=== PATIENT | female | born 1985 | race Caucasian/White ===

== ENCOUNTER 2018-12-13 13:36 | Inpatient (IN) | payer OTHER ==
[2018-12-13 15:05] LABS: BASO % 0.2 % (0-2.0); EOS % 0.3 % (0-4.5); HEMATOCRIT 34.1 % (32.4-45.2); HEMOGLOBIN 11.6 GM/dL (10.7-15.3); LYMPH % 17.4 % (8-40); MCH 31.7 pg (25.7-33.7); MCHC 33.9 g/dl (32.0-36.0); MEAN CELL VOLUME 93.4 fl (80-96); MEAN PLT VOLUME 10.1 fl (7.5-11.1); MONO % 7.8 % (3.8-10.2); NEUT % 74.3 % (42.8-82.8); PLATELET COUNT 203 K/MM3 (134-434); RBC 3.65 M/mm3 (3.60-5.2); RDW 13.5 % (11.6-15.6); WHITE BLOOD COUNT 7.9 K/mm3 (4.0-10.0)
[2018-12-13 15:14] VITALS: BMI 30.7
[2018-12-13 15:26] LABS: INR 0.96 (0.83-1.09); PROTHROMBIN TIME (PATIENT) 11.3 SEC (9.7-13.0)
[2018-12-13 15:29] LABS: ACTIVATED PTT 27.1 SECONDS (25.2-36.5)
[2018-12-13 15:33] LABS: CALCIUM 8.6 mg/dL (8.5-10.1); CREATININE 0.4 mg/dL (0.55-1.3); POTASSIUM 3.6 mmol/L (3.5-5.1)
[2018-12-13] MEDS ORDERED: ELECTROLYTE-148 SOLN 1,000 ML IV ONE (15:45)
[2018-12-13] MEDS ORDERED: CITRIC ACID/SODIUM CITRATE 30 ML UNIT-DOSE CUP PO ONE ×3 (15:45→19:26)
[2018-12-13] MEDS ORDERED: ELECTROLYTE-148 SOLN 1,000 ML IV SCH ×2 (15:45→19:30)
[2018-12-13] MEDS ORDERED: TUBERCULIN PPD 5 TU/0.1ML SYRINGE (IN PATIENT USE ONLY) ID ONE (16:30)
[2018-12-13] MEDS ORDERED: ELECTROLYTE-148 SOLN 500 ML IV ONE (19:20)
--- NOTE | 2018-12-13 19:32 | HP ---
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: Alzheimer's, CVA, Dementia, Migraine, Multiple Sclerosis, Peripheral Neuropathy, Parkinson's, Seizure, Syncope, TIA, Vertigo, Other Cardiovascular: No: AFIB, Aneurysm, Aortic Insufficiency, Aortic Stenosis, CAD, CHF, Deep Vein Thrombosis, HTN, Hyperlipdemia, NC, Mitral Insufficiency, Mitral Stenosis, Murmur, Pulmonary Hypertension, Other Pulmonary: No: Asthma, Bronchitis, Cancer, COPD, O2 Dependent, Pneumonia, Previously Intubated, Pulmonary Embolus, Pulmonary Fibrosis, Sleep Apnea, Other Gastrointestinal: No: Ascites, Cancer, Constipation, Crohn's Disease, Diverticulitis, Diverticulosis, Esophageal Varices, Gastritis, GERD, GI Bleed, Hemorrhoids, Hiatal Hernia, Inflamatory Bowel Disease, Irritable Bowel Disease, Pancreatitis, Peptic Ulcer Disease, Ulcerative Colitis, Other Hepatobiliary: No: Cirrhosis, Cholelithiasis, Cholecystitis, Choledocholithiasis , Hepatitis A, Hepatitis B, Hepatitis C, Other Renal/: No: Renal Failure, Renal Inusuff, BPH, Cancer, Hematuria, Hemodialysis , Neurogenic Bladder, Renal Calculi, UTI, Other Reproductive: No: Ectopic , Endometriosis, Fibroids, PID, Polycystic Ovary Syndrome, Postmenopausal, Other ...: 1 ...Para: 0 ...Term: 0 ...: 0 ...Spon : 0 ...Induced : 0 ...Multiple Gestation: 0 ...LMP: 03/12/18 ...EDC by Sono: 12/10/18 Heme/Onc: No: Anemia, B12 Deficiency, Bleeding Disorder, Cancer, Current Chemotherapy, Current Radiation Therapy, Hemochromatosis, Hypercoaguable State, Myeloproliferative Synd, Sickle Cell Disease, Sickle Cell Trait, Thrombocytopenia, Other Infectious Disease: No: AIDS, C-Diff, Herpes Zoster, HIV, MRSA, STD's, Tuberculosis, VREF, Other Psych: No: Addictions, Anxiety, Bipolar, Depression, Panic, Psychosis, Schizophrenia, Other Musculoskeletal: No: Bursitis, Chronic low back pain, Hemiparesis, Hemiplegia, Osteoarthritis, Paraplegia, Other Rheumatology: No: Fibromyalgia, Gout, Lupus, Rheumatoid Arthritis, Sarcoidosis, Vasculitis, Other ENT: No: Allergic Rhinitis, Sinusitis, Other Endocrine: No: Cole's Disease, [place]'s Disease, Diabetes Insipidus, Diabetes Mellitus, Hyperparathyroidism, Hyperthyroidism, Hypothyroidism, Osteopenia, SIADH, Other Dermatology: No: Basal Cell, Cellulitis, Eczema, Melanoma, Psoriasis, Squamous Cell, Other - Past Surgical History Past Surgical History: No: None, AAA Repair, AICD, Amputation, Appendectomy, Arthrosocopy, AV Fistula/Graft, Bariatric Surgery, Breast Biopsy, Bypass, CABG, Carotid Endarterectomy, Cataract Removal, Cholecystectomy, Colectomy, Colonoscopy, Colostomy, Craniotomy, , Cystectomy, Hernia Repair, Hysterectomy, Ileal Conduit, Ileosotomy, Joint Replacement, Kidney Transplant, Laminectomy, Liver Transplant, Mastectomy, Nephrectomy, Oopherectomy, Orchiectomy, Permanent Pacemaker, Prostatectomy, Splenectomy, Stent, Thoracotomy , TURP, Tonsillectomy, Tubal Ligation, Upper Endoscopy, Valve Replacement, Vasectomy, Vein Stripping/Ligation Hx Myomectomy: No Hx Transabdominal Cerclage: No - Advance Directives Advance Directives: No: Living Will, Health Care Proxy, DNR, Organ Donor, Tissue Donor, MOLST - Smoking History Smoking history: Never smoked Have you smoked in the past 12 months: No - Alcohol/Substance Use Hx Alcohol Use: No History of Substance Use: reports: None. denies: Cocaine, Heroin, Marijuana, Prescription, Tranquilizers - Social History Usual Living Arrangement: Yes: With Spouse ADL: Independent History of Recent Travel: No Home Medications - Allergies Allergies/Adverse Reactions: Allergies Allergy/AdvReac Type Severity Reaction Status Date / Time No Known Allergies Allergy Verified 12/13/18 14:47 - Home Medications Home Medications: Ambulatory Orders Vits96/Iron Fum/Folic [ Tablet] 1 each PO DAILY 12/13/18 Family Disease History - Family Disease History Family History: Denies Review of Systems - Review of Systems Constitutional: denies: No Symptoms, Chills, Diaphoresis, Fever, Lethargy, Loss of Appetite, Malaise, Night Sweats, Unintentional Wgt. Loss, Weakness, Other Eyes: denies: No Symptoms, Blind Spots, Blurred Vision, Double Vision, Eye Pain , Floaters, Photophobia, Recent Change in Vision, Other HENT: denies: No Symptoms, Difficult Swallowing, Ear Discharge, Ear Pain, Epistaxis, Gingival Bleeding, Hearing Loss, Mouth Swelling, Nasal Congestion, Ocular Prosthesis, Throat Pain, Toothache, Ringing in Ears, Other Neck: denies: No Symptoms, Decreased ROM, Lumps, Pain on Movement, Stiffness, Swollen Glands, Tenderness, Other Cardiovascular: denies: No Symptoms, Chest Pain, Edema, Palpitations, Shortness of Breath, Other Respiratory: denies: No Symptoms, Cough, Exercise Intolerance, Hemoptysis, Orthopnea, PND, Snoring, SOB, SOB on Exertion, Wheezing, Other Gastrointestinal: denies: No Symptoms, Abdominal Pain, Bloating, Constipation, Diarrhea, Dysphagia, Indigestion, Melena, Nausea, Rectal Bleeding, Vomiting, Vomiting Blood, Other Genitourinary: denies: No Symptoms, Burning, Discharge, Dysuria, Flank Pain, Frequency, Hematuria, Incontinence, Lesions, Menses, Pain, Testicular Mass, Testicular Pain, Testicular Swelling, Urgency, Vaginal Bleeding, Other Breasts: denies: No Symptoms Reported, See HPI, Breast Implants, Discharge from Nipple, Lumps, Pain, Skin Changes, Other Musculoskeletal: denies: No Symptoms, Back Pain, Crepitus, Decreased ROM, Extremity Pain, Joint Pain, Joint Swelling, Muscle Pain, Muscle Cramps, Muscle Weakness, Other Integumentary: denies: No Symptoms, Blister, Bruising, Change in Color, Eczema, Erythema, Incision, Lesions, Lump, Pallor, Pruritis, Rash, Wound, Other Neurological: denies: No Symptoms, Change in LOC, Change in Speech, Confusion, Dizziness, Headache, Incoordination, Numbness, Parasthesia, Pre-Existing Deficit , Seizure, Syncope, Tremors, Unsteady Gait, Weakness, Other Endocrine: denies: No Symptoms, Excessive Sweating, Flushing, Increased Hunger, Increased Thirst, Intolerance to Cold, Intolerance to Heat, Unexplained Weight Gain, Unexplained Weight Loss, Other Hematology/Lymphatic: denies: No Symptoms, Easily Bruised, Excessive Bleeding, Swollen Glands, Other Psychiatric: denies: No Symptoms, Altered Sleep Pattern, Anxiety, Depression, Hallucinations, Panic, Paranoia, Suicidal, Other Pain Intensity: 5 Physical Exam - Maternity Vital Signs: Vital Signs Temperature 97.9 F 12/13/18 17:51 Pulse Rate 82 05/29/19 17:51 Respiratory Rate 18 12/13/18 17:51 Blood Pressure 126/58 L 12/13/18 17:51 O2 Sat by Pulse Oximetry (%) Constitutional: Yes: Well Nourished, No Distress, Calm Eyes: Yes: WNL, Conjunctiva Clear, EOM Intact HENT: Yes: WNL, Atraumatic, Normocephalic Neck: Yes: WNL, Supple, Trachea Midline Cardiovascular: Yes: WNL, Regular Rate and Rhythm Lungs: Clear to auscultation, Normal air movement, Other Breast(s): Yes: WNL - Abdominal Exam/OB Fundal Height: 42 Number of Fetuses: Single Presentation: Oblique Contractions: Yes Regularity: Irregular Intensity: Mild/Mod Monitor Mode: External Heart Rate (range): 135 Heart Rate Location: [facility] Category: I Accelerations: Uniform Decelerations: None - Vaginal Exam/OB Vaginal Bleediing: No Speculum Exam: No Dilatation (cm): 1 c m Amniotic Membrane Status: Intact Presentation: Transverse/Shoulder Station: -3 - Physical Exam Musculoskeletal: Yes: WNL. No: Back Pain, Joint Stiffness, Joint Swelling, Muscle Pain, Muscle Weakness, Other Extremities: No: WNL, Amputation, Calf Tenderness, Cold, Cool, Cyanosis, Deformity, Delayed Capillary Refill, Erythema, External Rotation, Internal Rotation, Pallor, Shortened, Other Edema: Yes Edema: LUE: 2+, RUE: 2+, LLE: 2+, RLE: 2+ Integumentary: No: WNL, Body Piercing, Bruising, Erythema, Incision, Jaundice, Laceration, Petechiae, Pressure Ulcer, Rash, Skin Tear, Tattoos, Tenting, Onychomycosis, Venous Stasis Changes, Other Deep Tendon Reflex Grade: Normal +2 ...Motor Strength: WNL, LUE, LLE, RUE, RLE Psychiatric: Yes: WNL, Alert, Oriented - Labs Lab Results: CBC, BMP 12/13/18 14:30 12/13/18 14:30 Hemorrhage Risk Assessment - Risk Factors Risk Score: 0 Risk Level: Low Risk Assessment/Plan for c s as oblique lie, oligo, post date
[2018-12-13] MEDS ORDERED: PHENYLEPHRINE HCL 10 MG/1 ML SINGLE DOSE VIAL ONE (19:47)
[2018-12-13] MEDS ORDERED: morphine SULFATE/Preservative Free 0.5 MG/ML (1cc Syringe) ONE (19:47)
[2018-12-13] MEDS ORDERED: ceFAZolin SODIUM 1 GM VIAL ONE ×2 (20:02)
[2018-12-13] MEDS ORDERED: OXYTOCIN 20 UNITS in 0.9% NS 20 UNIT/1,000 ML INFUS.BAG IV ONE ×2 (20:08→21:12)
[2018-12-13] MEDS ORDERED: METHYLERGONOVINE MALEATE 0.2 MG/1 ML AMP IM PRN (21:24)
[2018-12-13] MEDS ORDERED: oxyCODONE HCL 5 MG TABLET PO PRN ×2 (21:24)
[2018-12-13] MEDS ORDERED: IBUPROFEN 600 MG TABLET (FP) PO PRN (21:24)
[2018-12-13] MEDS ORDERED: SENNOSIDES/DOCUSATE COMBO (SENNA PLUS) TABLET (UD) PO PRN (21:24)
[2018-12-13] MEDS ORDERED: OXYTOCIN 20 UNITS in 0.9% NS 20 UNIT/1,000 ML INFUS.BAG IV SCH (21:30)
--- NOTE | 2018-12-13 21:43 | OP ---
Operative Note - Note: Operative Date: 12/13/18 Pre-Operative Diagnosis: oligo, oblique lie, post date, pt requests Operation: primary lt c s Findings: macrosomia, same Implants: none Post-Operative Diagnosis: Other (mac) Surgeon: Stuart Connell Conference Planning Manager: Augustine Lang Anesthesiologist/PROFESSOR OF ARCHITECTURE: Fede Friend Anesthesia: Spinal Specimens Removed: placenta Estimated Blood Loss (mls): 700 Operative Report Dictated: Yes
[2018-12-14] MEDS: IBUPROFEN 800 MG/8 ML IJ IVPB PRN ×2 (06:44→17:11)
[2018-12-14 08:15] LABS: BASO % 0.2 % (0-2.0); EOS % 0.1 % (0-4.5); HEMOGLOBIN 11.3 GM/dL (10.7-15.3); LYMPH % 11.8 % (8-40); MCH 32.1 pg (25.7-33.7); MCHC 34.2 g/dl (32.0-36.0); MEAN CELL VOLUME 93.7 fl (80-96); MONO % 7.7 % (3.8-10.2); NEUT % 80.2 % (42.8-82.8); PLATELET COUNT 195 K/MM3 (134-434); RBC 3.52 M/mm3 (3.60-5.2); RDW 13.2 % (11.6-15.6); WHITE BLOOD COUNT 10.9 K/mm3 (4.0-10.0)
[2018-12-14] MEDS: ENOXAPARIN NA (PORCINE) 40 MG/0.4 ML DISP.SYRIN SQ SCH (09:38)
--- NOTE | 2018-12-14 10:26 | PN ---
Progress Note, Physician Chief Complaint: POD1 s/p csection with spinal and duramorph - Current Medication List Current Medications: Active Medications Acetaminophen (Tylenol -) 650 mg PO Q4H PRN PRN Reason: PAIN LEVEL 1-5 Bisacodyl (Dulcolax Suppository -) 10 mg RC PRN PRN PRN Reason: CONSTIPATION Enoxaparin Sodium (Lovenox -) 40 mg SQ DAILY [facility] Last Admin: 12/14/18 09:38 Dose: 40 mg Oxytocin/Sodium Chloride (Normal Saline+20 Units Oxytocin -) 20 unit in 1,000 mls @ 125 mls/hr IV ASDIR [facility] Last Admin: 12/13/18 21:15 Dose: 125 mls/hr Ibuprofen (Motrin -) 600 mg PO Q4H PRN PRN Reason: PAIN LEVEL 1-5 Ibuprofen (Caldolor Injection -) 800 mg IVPB Q8H PRN PRN Reason: PAIN LEVEL 7 - 10 Last Admin: 12/14/18 06:44 Dose: 800 mg Methylergonovine Maleate (Methergine Injection -) 0.2 mg IM Q4H PRN PRN Reason: Excessive Bleeding (L&D) Oxycodone HCl (Roxicodone -) 5 mg PO Q4H PRN PRN Reason: PAIN LEVEL 4 - 6 Oxycodone HCl (Roxicodone -) 10 mg PO Q4H PRN PRN Reason: PAIN LEVEL 7 - 10 Senna/Docusate Sodium (Pericolace -) 2 tablet PO HS PRN PRN Reason: CONSTIPATION Simethicone (Mylicon -) 80 mg PO Q4H PRN PRN Reason: GAS - Objective Vital Signs: Vital Signs Temperature 98.9 F 12/14/18 06:00 Pulse Rate 79 12/14/18 06:00 Respiratory Rate 18 12/14/18 07:00 Blood Pressure 117/69 12/14/18 06:00 O2 Sat by Pulse Oximetry (%) 100 12/13/18 22:15 Labs: CBC, BMP 12/14/18 07:00 12/13/18 14:30 INR, PTT INR 0.96 (0.83-1.09) 12/13/18 14:30 Assessment/Plan Pt doing well. pain is under good control. No SANTIAGO, backache, no other anesthetic issues/complications.
--- NOTE | 2018-12-14 14:16 | PN ---
Post Progress Note - Subjective Subjective: pt is doing well, walking Post Day: 1 Type of Delivery: Primary C/S Vital Signs: Vital Signs Temperature 99.1 F 12/14/18 10:00 Pulse Rate 77 12/14/18 10:00 Respiratory Rate 18 12/14/18 13:00 Blood Pressure 122/58 L 12/14/18 10:00 O2 Sat by Pulse Oximetry (%) 100 12/13/18 22:15 Breast Exam: Yes: Soft Uterus: Yes: Fundus Firm, Fundus below umbilicus, Non-tender Incision: Yes: Dressing dry and intact, Sutures intact Abdomen/GI: Yes: Abdomen soft, Passing flatus, Tolerating PO Lochia: Yes: Rubra Lochia, amount: Small Extremities: Yes: Calves non-tender Perineum: Yes: Intact Activity: Ambulating - Labs Labs: CBC WBC 10.9 K/mm3 (4.0-10.0) H 12/14/18 07:00 RBC 3.52 M/mm3 (3.60-5.2) L 12/14/18 07:00 Hgb 11.3 GM/dL (10.7-15.3) 12/14/18 07:00 Hct 33.0 % (32.4-45.2) 12/14/18 07:00 MCV 93.7 fl (80-96) 12/14/18 07:00 MCH 32.1 pg (25.7-33.7) 12/14/18 07:00 MCHC 34.2 g/dl (32.0-36.0) 12/14/18 07:00 RDW 13.2 % (11.6-15.6) 12/14/18 07:00 Plt Count 195 K/MM3 (134-434) 12/14/18 07:00 MPV 10.0 fl (7.5-11.1) 12/14/18 07:00 Absolute Neuts (auto) 8.8 K/mm3 (1.5-8.0) H 12/14/18 07:00 Neutrophils % 80.2 % (42.8-82.8) 12/14/18 07:00 Lymphocytes % 11.8 % (8-40) D 12/14/18 07:00 Monocytes % 7.7 % (3.8-10.2) 12/14/18 07:00 Eosinophils % 0.1 % (0-4.5) 12/14/18 07:00 Basophils % 0.2 % (0-2.0) 12/14/18 07:00 Nucleated RBC % 0 % (0-0) 12/14/18 07:00 Other Findings, Remarks: doing well , Problem List - Problems (1) delivery delivered Code(s): O82 - ENCOUNTER FOR DELIVERY WITHOUT INDICATION Assessment/Plan for c s as oblique lie, oligo, post date
[2018-12-14] MEDS ORDERED: BISACODYL 10 MG SUPP.RECT RC PRN (21:24)
[2018-12-15] MEDS: IBUPROFEN 600 MG TABLET (FP) PO PRN ×2 (02:35→15:22)
[2018-12-15] MEDS: SIMETHICONE 80 MG TAB.CHEW (FP) PO PRN (02:36)
[2018-12-15] MEDS: ENOXAPARIN NA (PORCINE) 40 MG/0.4 ML DISP.SYRIN SQ SCH (09:58)
[2018-12-15] MEDS: ACETAMINOPHEN 325 MG TABLET (FP) PO PRN (15:22)
--- NOTE | 2018-12-15 15:52 | PN ---
Post Progress Note Post Day: 2 Type of Delivery: Primary C/S Vital Signs: Vital Signs Temperature 97.9 F 12/15/18 10:00 Pulse Rate 77 12/15/18 10:00 Respiratory Rate 18 12/15/18 10:00 Blood Pressure 126/67 12/15/18 10:00 O2 Sat by Pulse Oximetry (%) 100 12/13/18 22:15 Breast Exam: Yes: Soft Uterus: Yes: Fundus Firm, Fundus below umbilicus Incision: Yes: Dressing dry and intact, Sutures intact Abdomen/GI: Yes: Abdomen soft, Passing flatus, Tolerating PO Lochia: Yes: Serosa Lochia, amount: Small Extremities: Yes: Calves non-tender Perineum: Yes: Intact Activity: Ambulating - Labs Labs: CBC WBC 10.9 K/mm3 (4.0-10.0) H 12/14/18 07:00 RBC 3.52 M/mm3 (3.60-5.2) L 12/14/18 07:00 Hgb 11.3 GM/dL (10.7-15.3) 12/14/18 07:00 Hct 33.0 % (32.4-45.2) 12/14/18 07:00 MCV 93.7 fl (80-96) 12/14/18 07:00 MCH 32.1 pg (25.7-33.7) 12/14/18 07:00 MCHC 34.2 g/dl (32.0-36.0) 12/14/18 07:00 RDW 13.2 % (11.6-15.6) 12/14/18 07:00 Plt Count 195 K/MM3 (134-434) 12/14/18 07:00 MPV 10.0 fl (7.5-11.1) 12/14/18 07:00 Absolute Neuts (auto) 8.8 K/mm3 (1.5-8.0) H 12/14/18 07:00 Neutrophils % 80.2 % (42.8-82.8) 12/14/18 07:00 Lymphocytes % 11.8 % (8-40) D 12/14/18 07:00 Monocytes % 7.7 % (3.8-10.2) 12/14/18 07:00 Eosinophils % 0.1 % (0-4.5) 12/14/18 07:00 Basophils % 0.2 % (0-2.0) 12/14/18 07:00 Nucleated RBC % 0 % (0-0) 12/14/18 07:00 Kleihauer-Betke Stain Cancelled 12/13/18 22:15 Kleyarelyauer-Betke F Hgb Cancelled 12/13/18 22:15 Problem List - Problems (1) delivery delivered Code(s): O82 - ENCOUNTER FOR DELIVERY WITHOUT INDICATION Assessment/Plan dc pt home tomorrow
--- NOTE | 2018-12-15 15:56 | DS ---
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 Vital Signs: Vital Signs Temperature 97.9 F 12/15/18 10:00 Pulse Rate 77 12/15/18 10:00 Respiratory Rate 18 12/15/18 10:00 Blood Pressure 126/67 12/15/18 10:00 O2 Sat by Pulse Oximetry (%) 100 12/13/18 22:15 Constitutional: Yes: Well Nourished, No Distress, Calm Eyes: Yes: WNL, Conjunctiva Clear, EOM Intact HENT: Yes: WNL, Atraumatic, Normocephalic Neck: Yes: WNL, Supple, Trachea Midline Cardiovascular: Yes: WNL, Regular Rate and Rhythm Respiratory: Yes: WNL, Regular, CTA Bilaterally Gastrointestinal: Yes: WNL, Normal Bowel Sounds, Soft ...Rectal Exam: Yes: WNL Renal/: Yes: WNL Pelvis: Yes: WNL External Genitalia: Yes: Normal Vaginal Exam: Yes: Normal Cervix: Yes: Normal Uterus: Yes: Normal Adnexa: Normal: Left, Right ....Post : Yes: Uterus firm, Uterus non-tender Breast(s): Yes: WNL Musculoskeletal: Yes: WNL Extremities: Yes: WNL Edema: Yes Edema: LUE: 1+, RUE: 1+, LLE: 1+, RLE: 1+ Integumentary: Yes: WNL Wound/Incision: Yes: Clean/Dry, Well Approximated Neurological: Yes: WNL, Alert, Oriented ...Motor Strength: WNL Psychiatric: Yes: WNL, Alert, Oriented Labs: CBC, BMP 12/14/18 07:00 12/13/18 14:30 Delivery - Delivery Section: Primary Type of Anesthesia: Spinal Episiotomy/Laceration: None EBL (cc): 700 Delivery, Single - Stages of Labor Date of Delivery: 12/13/18 Time of Delivery: 20:13 Time Placenta Delivered: 20:14 - Condition of Infant Envelope 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
--- NOTE | 2018-12-16 00:31 | PN ---
Post Progress Note - Subjective Subjective: pt is doing well, Post Day: 3 Type of Delivery: Primary C/S Vital Signs: Vital Signs Temperature 97.9 F 12/15/18 20:11 Pulse Rate 87 12/15/18 20:11 Respiratory Rate 20 12/15/18 20:11 Blood Pressure 115/72 12/15/18 20:11 O2 Sat by Pulse Oximetry (%) 100 12/13/18 22:15 Breast Exam: Yes: Soft Uterus: Yes: Fundus Firm, Fundus below umbilicus Incision: Yes: Dressing dry and intact, Sutures intact Abdomen/GI: Yes: Abdomen soft, Passing flatus, Tolerating PO Lochia: Yes: Serosa Lochia, amount: Small Extremities: Yes: Calves non-tender Perineum: Yes: Intact Activity: Ambulating - Labs Labs: CBC WBC 10.9 K/mm3 (4.0-10.0) H 12/14/18 07:00 RBC 3.52 M/mm3 (3.60-5.2) L 12/14/18 07:00 Hgb 11.3 GM/dL (10.7-15.3) 12/14/18 07:00 Hct 33.0 % (32.4-45.2) 12/14/18 07:00 MCV 93.7 fl (80-96) 12/14/18 07:00 MCH 32.1 pg (25.7-33.7) 12/14/18 07:00 MCHC 34.2 g/dl (32.0-36.0) 12/14/18 07:00 RDW 13.2 % (11.6-15.6) 12/14/18 07:00 Plt Count 195 K/MM3 (134-434) 12/14/18 07:00 MPV 10.0 fl (7.5-11.1) 12/14/18 07:00 Absolute Neuts (auto) 8.8 K/mm3 (1.5-8.0) H 12/14/18 07:00 Neutrophils % 80.2 % (42.8-82.8) 12/14/18 07:00 Lymphocytes % 11.8 % (8-40) D 12/14/18 07:00 Monocytes % 7.7 % (3.8-10.2) 12/14/18 07:00 Eosinophils % 0.1 % (0-4.5) 12/14/18 07:00 Basophils % 0.2 % (0-2.0) 12/14/18 07:00 Nucleated RBC % 0 % (0-0) 12/14/18 07:00 Kleihauer-Betke Stain Cancelled 12/13/18 22:15 Kleihauer-Betke F Hgb Cancelled 12/13/18 22:15 Problem List - Problems (1) delivery delivered Code(s): O82 - ENCOUNTER FOR DELIVERY WITHOUT INDICATION Assessment/Plan dc pt home today, will be fu in 2 days
[2018-12-16] MEDS: ACETAMINOPHEN 325 MG TABLET (FP) PO PRN ×2 (00:58→08:05)
[2018-12-16] MEDS: SIMETHICONE 80 MG TAB.CHEW (FP) PO PRN ×2 (00:59→08:06)
[2018-12-16] MEDS: IBUPROFEN 600 MG TABLET (FP) PO PRN (08:04)
[2018-12-16 08:30] LABS: BASO % 0.4 % (0-2.0); EOS % 0.8 % (0-4.5); HEMATOCRIT 31.8 % (32.4-45.2); HEMOGLOBIN 10.6 GM/dL (10.7-15.3); LYMPH % 15.1 % (8-40); MCH 31.7 pg (25.7-33.7); MCHC 33.3 g/dl (32.0-36.0); MEAN CELL VOLUME 95.4 fl (80-96); MEAN PLT VOLUME 9.4 fl (7.5-11.1); MONO % 8.4 % (3.8-10.2); NEUT % 75.3 % (42.8-82.8); PLATELET COUNT 234 K/MM3 (134-434); RBC 3.33 M/mm3 (3.60-5.2); RDW 13.7 % (11.6-15.6); WHITE BLOOD COUNT 8.5 K/mm3 (4.0-10.0)
[2018-12-16] MEDS: ENOXAPARIN NA (PORCINE) 40 MG/0.4 ML DISP.SYRIN SQ SCH (10:05)
[2018-12-16 10:49] VITALS: BP 127/79; PULSE 86; TEMP 98.7
--- NOTE | 2018-12-18 17:45 | PATH ---
Surgical Pathology Report Patient Name: STELLA LIM Med. Rec. 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 Electronically Signed Taylor Sarabia M.D. Gross Description The specimen is received fresh labeled placenta and is a 391 gram, 24.0 x 23.0 x 2.3 cm. placenta with attached membranes and umbilical cord. The attached membranes are ley, translucent with focal opacities and insert marginally. The umbilical cord measures 33 cm. in length and averages 1 cm. in diameter. The cord inserts centrally. No true knots or strictures are identified. Cut surface of the umbilical cord reveals 3 vessels. The surface is emerson-blue with minimal fibrin deposition and appropriate caliber vessels. The maternal surface is red-brown with focal defects. Sectioning reveals red-brown, spongy parenchyma. No lesions are identified. Batch Weigher sections are submitted in three cassettes as follows: 1- membrane rolls and umbilical cord; 2-3- full thickness sections of placenta. /12/15/2018 [facility]
== END 2018-12-16 14:34 | disposition home or self-care (01) | DRG 540 ==
LOC: JLDR 13:36 → J3W 22:30
PROVIDERS: ADMIT Obstetrics & Gynecology; ATTEND Obstetrics & Gynecology
PROC: 10D00Z1 Extraction of Products of Conception, Low, Open Approach (ICD-10-PCS; principal; 2018-12-13)
DX: O48.0 Post-term pregnancy (principal); O41.03X0 Oligohydramnios, third trimester, not applicable or unspecified; O32.2XX0 Maternal care for transverse and oblique lie, not applicable or unspecified; O36.63X0 Maternal care for excessive fetal growth, third trimester, not applicable or unspecified; Z3A.40 40 weeks gestation of pregnancy; Z37.0 Single live birth
CPT/HCPCS: 36415; 80048; 85025; 85461; 85610; 85730; 86593; 86850; 86900; 86901; 86999; 88307-TC